=== PATIENT | male | born 1970 | race Caucasian/White ===

== ENCOUNTER → 2018-11-07 | Outpatient (CLI) | payer OTHER ==
--- NOTE | 2018-11-07 22:01 | CT ---
EXAMINATION TYPE: CT abdomen pelvis wo con DATE OF EXAM: 11/07/2018 HISTORY: Right sided abdominal and flank pain CT DLP: 273.8 mGycm. Automated Exposure Control for Dose Reduction was Utilized. TECHNIQUE: CT scan of the abdomen and pelvis is performed without oral or IV contrast. COMPARISON: NONE FINDINGS: Within the limitations of a non-contrast study, the following observations are made. LUNG BASES: No significant abnormality is appreciated. LIVER/GB: Liver is upper limits of normal in size. Liver is markedly heterogeneous hypodense consist ent with diffuse fatty infiltration. Gallbladder has distended margins without surrounding inflammato ry change. PANCREAS: No significant abnormality is seen. SPLEEN: No significant abnormality is seen. ADRENALS: No significant abnormality is seen. KIDNEYS: No renal stones or hydronephrosis is present bilaterally. No intraluminal calculus in poorly distended bladder. BOWEL: Appendix within normal limits for base of cecum in the right pelvis. GENITAL ORGANS: No gross abnormality seen. LYMPH NODES: No greater than 1cm abdominal or pelvic lymph nodes are appreciated. OSSEOUS STRUCTURES: Moderate to severe narrowing with endplate sclerosis L5-S1 level. OTHER: No significant additional abnormality is seen. IMPRESSION: No renal stones or hydronephrosis is seen bilaterally. No suspicious acute finding identi fied on noncontrast CT.
== END | disposition home or self-care (01) ==
LOC: RADCTMAIN 16:05
DX: R10.9 Unspecified abdominal pain (principal)
CPT/HCPCS: 74176

== ENCOUNTER 2019-03-19 00:50 | Emergency (ER) | payer OTHER ==
--- NOTE | 2019-03-19 01:50 | ED ---
Extremity Problem HPI - General Chief complaint: Extremity Problem,Nontraumatic Stated complaint: Rt Arm Pain Time Seen by Provider: 03/19/19 01:06 Source: patient Mode of arrival: ambulatory Limitations: no limitations - History of Present Illness Initial comments: This patient is a 48-year-old man who presents to be evaluated for swelling and redness to the right forearm. The patient believe that he had a spider bite to the mid forearm. He developed some redness and swelling over the course of next day. He circled the area and then when it had not completely resolved he felt he should be seen here for evaluation. The patient does note that the redness has started to decrease, but he does continue to have some swelling and tenderness. After reading on the Internet he was concerned there may be a blood clot. He does not have any associated symptoms. No chest pain, dyspnea, cough or hemoptysis, palpitations. No fever or chills. No history of DVT or PE. MD Complaint: extremity swelling Onset/Timin -: days(s) Location: right, upper extremity History of Same: No Quality: dull Consistency: constant Improves with: nothing Worsens with: nothing - Related Data Previous Rx's Medication Instructions Recorded Sulfamethox-Tmp 800-160Mg [Bactrim 1 each PO Q12HR #14 tab 03/19/19 Ds] Allergies Allergy/AdvReac Type Severity Reaction Status Date / Time No Known Allergies Allergy Verified 03/19/19 01:04 Review of Systems ROS Statement: Those systems with pertinent positive or pertinent negative responses have been documented in the HPI. ROS Other: All systems not noted in ROS Statement are negative. Constitutional: Denies: fever, chills Respiratory: Denies: cough, dyspnea Cardiovascular: Denies: chest pain, palpitations Skin: Reports: as per HPI, other (Bite with surrounding erythema and swelling) Neurological: Denies: weakness, numbness Past Medical History Additional Past Medical History / Comment(s): TBI, Hx of back Fracture History of Any Multi-Drug Resistant Organisms: None Reported Past Surgical History: Orthopedic Surgery Additional Past Surgical History / Comment(s): wrist, brain ( fall from 26 ft ladder 2010) Past Psychological History: Depression Smoking Status: Current every day smoker Past Alcohol Use History: Daily Past Drug Use History: None Reported General Exam Limitations: no limitations General appearance: alert, in no apparent distress Respiratory exam: Present: normal lung sounds bilaterally. Absent: respiratory distress, wheezes, rales, rhonchi, stridor Cardiovascular Exam: Present: regular rate, normal rhythm, normal heart sounds. Absent: systolic murmur, diastolic murmur, rubs, gallop Right Shoulder Exam: Present: normal inspection Upper Arm exam: Present: normal inspection Elbow exam: Present: normal inspection, full ROM. Absent: tenderness, swelling Forearm Wrist exam: Present: full ROM, swelling, erythema. Absent: abrasion, laceration, ecchymosis, deformity, crepitus, dislocation, tenderness over anatomical snuff box, pain with axial thumb loading Hand Wrist exam: Present: full ROM. Absent: tenderness, swelling Course Vital Signs 03/19/19 00:58 Temperature 98.3 F Pulse Rate 92 Respiratory 18 Rate Blood Pressure 125/94 O2 Sat by Pulse 97 Oximetry Medical Decision Making - Lab Data Result diagrams: 03/19/19 02:05 Lab Results 03/19/19 03/19/19 Range/Units 02:05 02:05 WBC 7.8 (3.8-10.6) k/uL RBC 4.64 (4.30-5.90) m/uL Hgb 15.8 (13.0-17.5) gm/dL Hct 44.7 (39.0-53.0) % MCV 96.3 (80.0-100.0) fL MCH 34.0 (25.0-35.0) pg MCHC 35.3 (31.0-37.0) g/dL RDW 13.2 (11.5-15.5) % Plt Count 279 (150-450) k/uL Neutrophils % 47 % Lymphocytes % 40 % Monocytes % 7 % Eosinophils % 3 % Basophils % 1 % Neutrophils # 3.6 (1.3-7.7) k/uL Lymphocytes # 3.1 (1.0-4.8) k/uL Monocytes # 0.5 (0-1.0) k/uL Eosinophils # 0.2 (0-0.7) k/uL Basophils # 0.1 (0-0.2) k/uL D-Dimer 0.33 (<0.60) mg/L FEU Disposition Clinical Impression: Infected bite wound Disposition: HOME SELF-CARE Condition: Good Instructions (If sedation given, give patient instructions): Insect Bite or Sting (ED) Prescriptions: Sulfamethox-Tmp 800-160Mg [Bactrim Ds] 1 each PO Q12HR #14 tab Is patient prescribed a controlled substance at d/c from ED?: No Referrals: [facility],Clinic [Primary Care Provider] - 1-2 days
[2019-03-19 02:23] LABS: Basophils # (A) 0.1 k/uL (0-0.2); Basophils % (A) 1 %; Eosinophils # (A) 0.2 k/uL (0-0.7); Eosinophils % (A) 3 %; HCT 44.7 % (39.0-53.0); HGB 15.8 gm/dL (13.0-17.5); Lymphocytes # (A) 3.1 k/uL (1.0-4.8); Lymphocytes % (A) 40 %; MCHC 35.3 g/dL (31.0-37.0); MCV 96.3 fL (80.0-100.0); Mean Platelet Volume 5.9; Monocytes # (A) 0.5 k/uL (0-1.0); Monocytes % (A) 7 %; Neutrophils # (A) 3.6 k/uL (1.3-7.7); Neutrophils % (A) 47 %; Platelet Count 279 k/uL (150-450); RBC 4.64 m/uL (4.30-5.90); RDW 13.2 % (11.5-15.5); WBC 7.8 k/uL (3.8-10.6)
[2019-03-19] MEDS ORDERED: SULFAMETHOX-TMP 800-160MG 1 EACH TAB PO STA (02:44)
[2019-03-19] MEDS ORDERED: SULFAMETH-TMP DS STARTER PACK 2 TAB BTL PO STA (03:38)
[2019-03-19 03:44] VITALS: BP 126/99; PULSE 112; RESP 19; TEMP 98.8
== END 2019-03-19 03:44 | disposition home or self-care (01) ==
LOC: EC 00:50
DX: S50.861A Insect bite (nonvenomous) of right forearm, initial encounter (principal); L08.9 Local infection of the skin and subcutaneous tissue, unspecified; F17.200 Nicotine dependence, unspecified, uncomplicated; W57.XXXA Bitten or stung by nonvenomous insect and other nonvenomous arthropods, initial encounter
CPT/HCPCS: 36415; 85025; 85379; 99283

== ENCOUNTER 2019-12-06 21:53 | Emergency (ER) | payer OTHER ==
--- NOTE | 2019-12-06 22:31 | ED ---
Recheck HPI - General Chief Complaint: Recheck/Abnormal Lab/Rx Stated Complaint: Abnormal Labs Time Seen by Provider: 12/06/19 22:04 Source: patient Mode of arrival: ambulatory Limitations: no limitations - History of Present Illness Initial Comments: This patient is a 49-year-old man who presents to have evaluation for hypokalemia. The patient states that earlier today he went to the [facility] in [place] where they did routine laboratory work. He states that approximately an hour or so ago he received a phone call telling him he needed to go to the nearest emergency department because his potassium was 2.9. Patient is not having any symptoms related to this. He denies chest pain, dyspnea, palpitations, lightheadedness or syncope. The patient does note that his oral intake has been down a little bit he states his appetite has not been great and also his new dentures and he has not felt like eating much. MD Complaint: abnormal lab -: hour(s) Returns Today for: Called Because of Abnormal Lab/Test Symptoms Since Prior Visit: no new symptoms Context: called for abnormal lab result Associated Symptoms: none - Related Data Home Medications Medication Instructions Recorded Confirmed Acetaminophen Tab [Tylenol Tab] 500 mg PO Q6H PRN 12/06/19 12/06/19 Lidocaine [Lidoderm 5% Patch] 1 patch TRANSDERM DAILY 12/06/19 12/06/19 Methocarbamol [Robaxin-750] 750 mg PO QID PRN 12/06/19 12/06/19 diphenhydrAMINE HCL [Benadryl] 50 mg PO Q6H 12/06/19 12/06/19 Previous Rx's Medication Instructions Recorded Potassium Chloride ER [K-Dur 20] 20 meq PO TID #9 tab 12/07/19 Allergies Allergy/AdvReac Type Severity Reaction Status Date / Time No Known Allergies Allergy Verified 12/06/19 23:24 Review of Systems ROS Statement: Those systems with pertinent positive or pertinent negative responses have been documented in the HPI. ROS Other: All systems not noted in ROS Statement are negative. Constitutional: Denies: fever Respiratory: Denies: cough, dyspnea Cardiovascular: Denies: chest pain, palpitations, edema, syncope Gastrointestinal: Denies: abdominal pain, vomiting, diarrhea Genitourinary: Denies: dysuria Musculoskeletal: Denies: back pain Skin: Denies: rash Neurological: Denies: headache, weakness, numbness, paresthesias Past Medical History Additional Past Medical History / Comment(s): TBI, Hx of back Fracture History of Any Multi-Drug Resistant Organisms: None Reported Past Surgical History: Orthopedic Surgery Additional Past Surgical History / Comment(s): wrist, brain ( fall from 26 ft ladder 2010) Past Psychological History: Depression Smoking Status: Current every day smoker Past Alcohol Use History: Daily Past Drug Use History: Marijuana General Exam Limitations: no limitations General appearance: alert, in no apparent distress Head exam: Present: atraumatic, normocephalic Eye exam: Present: normal appearance. Absent: scleral icterus, conjunctival injection ENT exam: Present: normal oropharynx Neck exam: Present: normal inspection Respiratory exam: Present: normal lung sounds bilaterally. Absent: respiratory distress, wheezes, rales, rhonchi, stridor Cardiovascular Exam: Present: regular rate, normal rhythm, normal heart sounds. Absent: systolic murmur, diastolic murmur, rubs, gallop GI/Abdominal exam: Present: soft. Absent: distended, tenderness, guarding, rebound, rigid, mass Extremities exam: Present: normal inspection, normal capillary refill. Absent: pedal edema, calf tenderness Neurological exam: Present: alert Skin exam: Present: warm, dry, intact, normal color. Absent: rash Course Vital Signs 12/06/19 12/06/19 12/06/19 21:54 22:18 23:30 Temperature 98.1 F Pulse Rate 92 90 Pulse Rate [ 89 Pulse Oximetery ] Respiratory 20 18 Rate Blood Pressure 153/110 146/112 O2 Sat by Pulse 100 99 Oximetry 12/07/19 12/07/19 01:00 02:30 Temperature 97.7 F Pulse Rate 89 92 Pulse Rate [ Pulse Oximetery ] Respiratory 17 18 Rate Blood Pressure 148/110 149/108 O2 Sat by Pulse 98 100 Oximetry Medical Decision Making - Medical Decision Making Patient is a 49-year-old man sent for evaluation treatment of hypokalemia. His potassium is found to be low. Patient is given supplementation here and I discussed admitting him for further supplementation, but the patient states she is asymptomatic and wants to go. We discussed close follow-up to have his potassium rechecked. We discussed returning immediately should he develop any symptoms. - Lab Data Result diagrams: 12/06/19 22:13 12/06/19 22:13 Lab Results 12/06/19 12/06/19 Range/Units 22:13 22:13 WBC 8.6 (3.8-10.6) k/uL RBC 3.90 L (4.30-5.90) m/uL Hgb 14.4 (13.0-17.5) gm/dL Hct 42.4 (39.0-53.0) % MCV 108.9 H (80.0-100.0) fL MCH 37.0 H (25.0-35.0) pg MCHC 34.0 (31.0-37.0) g/dL RDW 14.3 (11.5-15.5) % Plt Count 232 (150-450) k/uL Neutrophils % 58 % Lymphocytes % 28 % Monocytes % 8 % Eosinophils % 3 % Basophils % 2 % Neutrophils # 5.0 (1.3-7.7) k/uL Lymphocytes # 2.4 (1.0-4.8) k/uL Monocytes # 0.6 (0-1.0) k/uL Eosinophils # 0.2 (0-0.7) k/uL Basophils # 0.2 (0-0.2) k/uL Manual Slide Review Performed Macrocytosis Marked A Stomatocytes Present Sodium 136 L (137-145) mmol/L Potassium 2.3 L* (3.5-5.1) mmol/L Chloride 98 (98-107) mmol/L Carbon Dioxide 28 (22-30) mmol/L Anion Gap 10 mmol/L BUN 6 L (9-20) mg/dL Creatinine 0.49 L (0.66-1.25) mg/dL Est GFR (CKD-EPI)AfAm >90 (>60 ml/min/1.73 sqM) Est GFR (CKD-EPI)NonAf >90 (>60 ml/min/1.73 sqM) Glucose 82 (74-99) mg/dL Calcium 9.0 (8.4-10.2) mg/dL - EKG Data EKG shows normal: sinus rhythm (With one PVC), axis (normal), intervals (norm al), QRS complexes (normal), ST-T waves (normal) Rate: normal (Rate 93 bpm) Disposition Clinical Impression: Hypokalemia Disposition: HOME SELF-CARE Condition: Fair Instructions (If sedation given, give patient instructions): Hypokalemia (ED) Prescriptions: Potassium Chloride ER [K-Dur 20] 20 meq PO TID #9 tab Is patient prescribed a controlled substance at d/c from ED?: No Referrals: [facility],Clinic [Primary Care Provider] - 1-2 days
[2019-12-06 22:34] LABS: Basophils # (A) 0.2 k/uL (0-0.2); Basophils % (A) 2 %; Eosinophils # (A) 0.2 k/uL (0-0.7); Eosinophils % (A) 3 %; HCT 42.4 % (39.0-53.0); HGB 14.4 gm/dL (13.0-17.5); Lymphocytes # (A) 2.4 k/uL (1.0-4.8); Lymphocytes % (A) 28 %; MCV 108.9 fL (80.0-100.0); Macrocytosis Marked; Mean Platelet Volume 6.7; Monocytes # (A) 0.6 k/uL (0-1.0); Monocytes % (A) 8 %; Neutrophils % (A) 58 %; Platelet Count 232 k/uL (150-450); RDW 14.3 % (11.5-15.5); WBC 8.6 k/uL (3.8-10.6)
[2019-12-06 22:46] LABS: African American GFR (CKD) >90 (>60 ml/min/1.73 sqM); Anion Gap 10 mmol/L; Blood Urea Nitrogen 6 mg/dL (9-20); Carbon Dioxide 28 mmol/L (22-30); Chloride 98 mmol/L (98-107); Glucose 82 mg/dL (74-99); Non-African American GFR(CKD) >90 (>60 ml/min/1.73 sqM); Sodium 136 mmol/L (137-145)
[2019-12-06 22:54] LABS: Stomatocytes Present
[2019-12-06 23:49] LABS: Potassium 2.3 mmol/L (3.5-5.1)
[2019-12-07] MEDS ORDERED: POTASSIUM BICARBONATE/CIT AC 20 MEQ TABLET.EFF PO ONE (00:04)
[2019-12-07] MEDS ORDERED: POTASSIUM CHLORIDE 10 MEQ in WATER FOR INJECTION 1 100ML.BAG IVPB STA (00:04)
[2019-12-07 02:31] VITALS: BP 149/108; PULSE 92; RESP 18; TEMP 97.7
== END 2019-12-07 02:31 | disposition home or self-care (01) ==
LOC: EC 21:53
DX: E87.6 Hypokalemia (principal); F17.200 Nicotine dependence, unspecified, uncomplicated; Z79.899 Other long term (current) drug therapy
CPT/HCPCS: 36415; 93005; 80048; 85025; 99282; 96365; J3480

== ENCOUNTER 2019-12-16 18:04 | Emergency (ER) | payer OTHER ==
[2019-12-16 18:10] VITALS: RESP 16
[2019-12-16] MEDS ORDERED: SODIUM CHLORIDE 0.9% 500 ML 500 ML IV STA (18:13)
[2019-12-16] MEDS ORDERED: THIAMINE 100 MG/ML 2 ML VIAL IM STA (18:17)
[2019-12-16] MEDS ORDERED: LORazepam 2 MG/ML INJ IV PRN ×3 (18:17)
[2019-12-16 18:31] LABS: Basophils # (A) 0.1 k/uL (0-0.2); Basophils % (A) 1 %; Eosinophils # (A) 0.2 k/uL (0-0.7); Eosinophils % (A) 2 %; HCT 39.7 % (39.0-53.0); HGB 13.5 gm/dL (13.0-17.5); Lymphocytes # (A) 1.1 k/uL (1.0-4.8); Lymphocytes % (A) 13 %; MCH 37.2 pg (25.0-35.0); MCHC 34.1 g/dL (31.0-37.0); MCV 109.3 fL (80.0-100.0); Macrocytosis Marked; Mean Platelet Volume 7.2; Monocytes # (A) 0.6 k/uL (0-1.0); Monocytes % (A) 7 %; Neutrophils # (A) 6.5 k/uL (1.3-7.7); Neutrophils % (A) 75 %; Platelet Count 207 k/uL (150-450); RBC 3.63 m/uL (4.30-5.90); RDW 14.2 % (11.5-15.5); WBC 8.6 k/uL (3.8-10.6)
[2019-12-16 18:42] LABS: ALT 14 U/L (4-49); AST 51 U/L (17-59); Acetaminophen <10.0 ug/mL; African American GFR (CKD) >90 (>60 ml/min/1.73 sqM); Albumin 3.9 g/dL (3.5-5.0); Alcohol <10 mg/dL; Alkaline Phosphatase 102 U/L (38-126); Anion Gap 10 mmol/L; Blood Urea Nitrogen 7 mg/dL (9-20); Calcium 9.3 mg/dL (8.4-10.2); Carbon Dioxide 27 mmol/L (22-30); Chloride 97 mmol/L (98-107); Glucose 94 mg/dL (74-99); Magnesium 1.2 mg/dL (1.6-2.3); Non-African American GFR(CKD) >90 (>60 ml/min/1.73 sqM); Potassium 3.2 mmol/L (3.5-5.1); Salicylate <1.0 mg/dL; Sodium 134 mmol/L (137-145); Total Bilirubin 1.7 mg/dL (0.2-1.3); Total Protein 6.5 g/dL (6.3-8.2)
[2019-12-16] MEDS ORDERED: LORazepam 2 MG/ML INJ IV STA (18:59)
[2019-12-16] MEDS ORDERED: POTASSIUM CHLORIDE ER 10 MEQ TAB.ER.PRT PO STA (19:00)
[2019-12-16] MEDS ORDERED: levETIRAcetam IV 1,000 MG in SALINE 1 100ML.BAG IVPB STA (19:19)
--- NOTE | 2019-12-16 19:21 | CT ---
EXAMINATION TYPE: CT brain wo con DATE OF EXAM: 12/16/2019 COMPARISON: None INDICATION: Seizure. DLP: 1188.4 mGycm, Automated exposure control for dose reduction was used. CONTRAST: None CT of the brain is performed utilizing 3 mm thick sections through the posterior fossa and 3 mm thick sections through the remaining calvarium. Study is performed within 24 hours of arrival to the hosp ital. There is a curvilinear area of increased density along the right frontal parietal region could be a s mall subdural hematoma. Correlate with history. This has a depth of 0.7 cm. Minimal mass effect on t he adjacent brain may be present. No midline shift is evident. No mass lesion is evident. There is hypodensity within the left basal ganglion. Lacunar infarction be considered. This could be confirmed with MRI. Some mild white matter changes may be within the basal ganglion. Ventricles and sulci are appropriate for the patient age. Paranasal sinuses and mastoid air cells within the [id number] are clear. IMPRESSIONS: 1. Small subdural hematoma with a depth of 0.7 cm right frontal parietal region with minimal mass e ffect on the adjacent brain. 2. Hypodensity within the left basal ganglion may be an acute to subacute lacunar infarct. Some chron ic white matter changes may be within the bilateral basal ganglion. 3. Consider additional workup with MRI with contrast. 4. Report was called to emergency room [facility] by Dr. Ashraf by telephone at time of interpretatio n 1916 hours 12/16/2019
--- NOTE | 2019-12-16 19:26 | ED ---
Seizure HPI - General Chief Complaint: Seizure Stated Complaint: Seizure Time Seen by Provider: 12/16/19 18:13 Source: EMS Mode of arrival: EMS Limitations: no limitations - History of Present Illness Initial Comments: 49-year-old male who is a daily drinker presents to the emergency department today for chief complaint seizure. Patient has a witnessed seizure entire body shaking by a friend. They stated approximately lasted for minutes. Patient sta tess he's never had seizure before he states he is a daily drinker and hasn't drank since the night prior he states he did fall he states when he had the seizure he states he does not have a headache nausea vomiting visual changes he states that he has been somewhat shaky. Patient states that he has never had seizure from withdrawal before. Patient states he doesn't like he struck his head when he fell out of the car, denies neck pain. Denies fevers. Denies facial weakness, extremity weakness, sensation deficits. Patient on arrival is AAOx4 does not appear acute altered. Answering questions appropriate on gross exam no evidence of obvious head trauma. BP elevated on arrival as well as HR. - Related Data Home Medications Medication Instructions Recorded Confirmed Acetaminophen Tab [Tylenol Tab] 500 mg PO Q6H PRN 12/06/19 12/06/19 Lidocaine [Lidoderm 5% Patch] 1 patch TRANSDERM DAILY 12/06/19 12/06/19 Methocarbamol [Robaxin-750] 750 mg PO QID PRN 12/06/19 12/06/19 diphenhydrAMINE HCL [Benadryl] 50 mg PO Q6H 12/06/19 12/06/19 Previous Rx's Medication Instructions Recorded Potassium Chloride ER [K-Dur 20] 20 meq PO TID #9 tab 12/07/19 Allergies Allergy/AdvReac Type Severity Reaction Status Date / Time No Known Allergies Allergy Verified 12/06/19 23:24 Review of Systems ROS Statement: Those systems with pertinent positive or pertinent negative responses have been documented in the HPI. ROS Other: All systems not noted in ROS Statement are negative. Past Medical History Additional Past Medical History / Comment(s): TBI, Hx of back Fracture History of Any Multi-Drug Resistant Organisms: None Reported Past Surgical History: Orthopedic Surgery Additional Past Surgical History / Comment(s): wrist, brain ( fall from 26 ft ladder 2010) Past Psychological History: Depression Smoking Status: Current every day smoker Past Alcohol Use History: Daily Past Drug Use History: Marijuana General Exam - General Exam Comments Initial Comments: General: The patient is awake and alert, in no distress Eye: +3 mm pupils are equal, round and reactive to light, extra-ocular movements are intact. No nystagmus. There is normal conjunctiva bilaterally. No signs of icterus. Ears, nose, mouth and throat: There are moist mucous membranes and no oral lesions. Neck: The neck is supple, there is no tenderness or JVD. Cardiovascular: There is a regular rate and rhythm. No murmur, rub or gallop is appreciated. Respiratory: Lungs are clear to auscultation, respirations are non-labored, breath sounds are equal. No wheezes, stridor, rales, or rhonchi. Gastrointestinal: Soft, non-distended, non-tender abdomen without masses or organomegaly noted. There is no rebound or guarding present. Musculoskeletal: Normal ROM, no tenderness. Strength 5/5. Sensation intact. Pulses equal bilaterally 2+. Neurological: A&O x 3. CN II-XII intact, memory intact to immediately, intermediate and halfway recall. Able to follow simple verbal. Able to name a common object (pen). High quality, labial (pa) and lingual (la) speech. Low quality posterior pharynx/larynx (ga) voice sounds. Able to express general knowledge (days in a week). No hemineglect or inattention noted. Finger agnosia (-) and spatially oriented. Light touch and temperature sensation present over the face, chest, abdomen, back, UE bilaterally, and LE bilaterally. Able to localize point during point localization b/l and extinction. No visible bulk atrophy, hypertrophy, fasciculations, or myoclonus of the UE or LE b/l. Full PROM in UE and LE b/l. Bilateral muscle strength 5/5 for the following muscles: deltoid, biceps, triceps, brachioradialis, wrist extensors/flexor, hip flexor, hip abductors/adductors, hamstrings, quadriceps, feet dorsiflexors/plantar flexors. Finger to nose, finger to the examiners finger slightly shaky b/l but does not appear grossly ataxic b/l, and heel to garcia coordinated and accurate b/l. Coordinated and even demonstration of hand flip, finger to thumb, and toe tap b/l. (-) pronator drift. No nuchal rigidity. Skin: Skin is warm and dry and no rashes or lesions are noted. Psychiatric: Cooperative, appropriate mood & affect, normal judgment. Limitations: no limitations Course Vital Signs 12/16/19 12/16/19 18:07 20:00 Temperature 98.1 F 98.2 F Pulse Rate 108 H 102 H Respiratory 16 16 Rate Blood Pressure 134/113 136/104 O2 Sat by Pulse 100 98 Oximetry - Reevaluation(s) Reevaluation #1: Spoke to Dr Tanner who states he is comfortable with transfer to [facility] ED for neurosurgical evaluation/ICU stay most likely. Discussed current care plan he is agreeable and no changes at this time. 12/16/19 19:38 Medical Decision Making - Medical Decision Making 49-year-old male who is a daily drinker presenting for new-onset seizure. CT revealed a frontal left parietal subdural small with no shift. Possible subacute lacunar infarct is appreciated as well. Discussed VS, CT findings with attending who was next to me when I received the radiology call from Dr. Ashraf. Patient was mad aware of the findings and will be transferred to outside facility for high level of care. Patient neurological status has not changed. He was given keppra. Patient was given ativan. Patient is agreeable to transfer and care plan. Patient does have some electrolyte derangements such as low magnesium at 1.2 and low potassiumat 3.2. - Lab Data Result diagrams: 12/16/19 18:19 12/16/19 18:19 Lab Results 12/16/19 12/16/19 12/16/19 Range/Units 18:19 18:19 19:40 WBC 8.6 (3.8-10.6) k/uL RBC 3.63 L (4.30-5.90) m/uL Hgb 13.5 (13.0-17.5) gm/dL Hct 39.7 (39.0-53.0) % MCV 109.3 H (80.0-100.0) fL MCH 37.2 H (25.0-35.0) pg MCHC 34.1 (31.0-37.0) g/dL RDW 14.2 (11.5-15.5) % Plt Count 207 (150-450) k/uL Neutrophils % 75 % Lymphocytes % 13 % Monocytes % 7 % Eosinophils % 2 % Basophils % 1 % Neutrophils # 6.5 (1.3-7.7) k/uL Lymphocytes # 1.1 (1.0-4.8) k/uL Monocytes # 0.6 (0-1.0) k/uL Eosinophils # 0.2 (0-0.7) k/uL Basophils # 0.1 (0-0.2) k/uL Manual Slide Review Performed Macrocytosis Marked A PT 10.7 (9.0-12.0) sec INR 1.0 (<1.2) APTT 22.8 (22.0-30.0) sec Sodium 134 L (137-145) mmol/L Potassium 3.2 L (3.5-5.1) mmol/L Chloride 97 L (98-107) mmol/L Carbon Dioxide 27 (22-30) mmol/L Anion Gap 10 mmol/L BUN 7 L (9-20) mg/dL Creatinine 0.62 L (0.66-1.25) mg/dL Est GFR (CKD-EPI)AfAm >90 (>60 ml/min/1.73 sqM) Est GFR (CKD-EPI)NonAf >90 (>60 ml/min/1.73 sqM) Glucose 94 (74-99) mg/dL Calcium 9.3 (8.4-10.2) mg/dL Magnesium 1.2 L (1.6-2.3) mg/dL Total Bilirubin 1.7 H (0.2-1.3) mg/dL AST 51 (17-59) U/L ALT 14 (4-49) U/L Alkaline Phosphatase 102 (38-126) U/L Total Protein 6.5 (6.3-8.2) g/dL Albumin 3.9 (3.5-5.0) g/dL Salicylates <1.0 mg/dL Acetaminophen <10.0 ug/mL Serum Alcohol <10 mg/dL Disposition Clinical Impression: Subdural hematoma, New onset seizure, Alcohol abuse, Hypomagnesemia, Hypokalemia, QT prolongation, Lacunar infarction Disposition: TRANSFER TO PSYCH HOSP/UNIT Condition: Serious Is patient prescribed a controlled substance at d/c from ED?: No Referrals: [facility],Clinic [Primary Care Provider] - 1-2 days Time of Disposition: 19:28 - Out of Hospital Transfer - Req. Specs Out of Hospital Transfer - Requested Specifics: Other Emergency Center ([facility]: Spoke with [facility] physician Dr. Sesay)
[2019-12-16] MEDS: MAGNESIUM SULFATE-D5W PMX 1 GM in DEXTROSE/WATER 1 100ML.BAG IVPB SCH ×2 (19:56→20:17)
[2019-12-16 20:04] LABS: Partial Thromboplastin Time 22.8 sec (22.0-30.0); Prothrombin Time 10.7 sec (9.0-12.0)
[2019-12-16 20:09] VITALS: BP 136/104; PULSE 102; TEMP 98.2
[2019-12-17] MEDS ORDERED: THIAMINE 100 MG TAB PO SCH (07:30)
== END 2019-12-16 20:00 ==
LOC: EC 18:04
DX: S06.5X9A Traumatic subdural hemorrhage with loss of consciousness of unspecified duration, initial encounter (principal); R56.9 Unspecified convulsions; E83.42 Hypomagnesemia; E87.6 Hypokalemia; R94.31 Abnormal electrocardiogram [ECG] [EKG]; F10.10 Alcohol abuse, uncomplicated; Y90.9 Presence of alcohol in blood, level not specified; F17.200 Nicotine dependence, unspecified, uncomplicated; Z79.899 Other long term (current) drug therapy
CPT/HCPCS: 36415; 93005; 80053; 83735; 85025; 85610; 85730; 83520; 80329; 80320; 70450; 99285; 96374; 96375; 96361; 96372; J2060; J3411; J3475; J1953

== ENCOUNTER → 2020-02-23 | Outpatient (CLI) | payer OTHER ==
--- NOTE | 2020-02-24 04:34 | MR ---
EXAMINATION TYPE: MR brain wo/w con DATE OF EXAM: 02/23/2020 COMPARISON: HISTORY: Seizure CONTRAST: Standard multiplanar, multisequence MRI departmental protocol utilizing 7 mL intravenous Gadavist gabriella olinium contrast. Ventricles have normal size. There is no mass effect nor midline shift. There is no evidence of intra cranial hemorrhage. On the T2 and FLAIR images there are scattered white matter high signal foci arou nd the lateral ventricles. This is more on the left side in the centrum semiovale. These areas measur e up to 1.5 cm. Total number is approximately 10. Diffusion images show that some of these foci have increased signal. The brainstem shows a single 4 mm focus of increased signal on the left side of the isela. Cerebellum is intact. Corpus callosum is intact. Sella turcica appears normal. The contrast im ages show no pathologic enhancement. There is normal enhancement of the venous sinuses. IMPRESSION: White matter multiple foci in both cerebral hemispheres and also left side of the isela are nonspecifi c. This could relate to chronic small vessel ischemia or demyelinating disease. No evidence of a cathy ical infarct. The diffusion images show 2 or 3 foci of increased signal involving these white matter lesions that c ould be acute infarcts or acute foci of demyelinization.
== END | disposition home or self-care (01) ==
LOC: RADMRIMAIN 19:59
DX: R90.89 Other abnormal findings on diagnostic imaging of central nervous system (principal); G40.89 Other seizures
CPT/HCPCS: 70553; A9585

== ENCOUNTER 2020-12-13 21:52 | Emergency (ER) | payer OTHER ==
[2020-12-13 22:00] VITALS: BP 120/87; PULSE 91; RESP 18; TEMP 98.1
--- NOTE | 2020-12-13 22:47 | ED ---
Psych HPI - General Chief Complaint: Psychiatric Symptoms Stated Complaint: Sent by [facility] Time Seen by Provider: 12/13/20 22:02 Source: patient Mode of arrival: ambulatory - History of Present Illness Initial Comments: This patient is 50-year-old man who reports that he was sent here by the he'll be a because he was not taking all of his psychiatric medications. The patient states that he feels like they knock him out when he takes a medicines. When I review the patient, he denies feeling suicidal or severely depressed. He does complain of anxiety. Complaint: other -: days(s) Associated Psychiatric Symptoms: racing thoughts Quality: getting worse Improves With: none Worsens With: none Context: not taking psychiatric medications Associated Symptoms: denies other symptoms - Related Data Home Medications Medication Instructions Recorded Confirmed Acetaminophen Tab [Tylenol Tab] 500 mg PO Q6H PRN 12/06/19 12/06/19 Lidocaine [Lidoderm 5% Patch] 1 patch TRANSDERM DAILY 12/06/19 12/06/19 Methocarbamol [Robaxin-750] 750 mg PO QID PRN 12/06/19 12/06/19 diphenhydrAMINE HCL [Benadryl] 50 mg PO Q6H 12/06/19 12/06/19 Previous Rx's Medication Instructions Recorded Potassium Chloride ER [K-Dur 20] 20 meq PO TID #9 tab 12/07/19 Allergies Allergy/AdvReac Type Severity Reaction Status Date / Time No Known Allergies Allergy Verified 12/13/20 22:00 Review of Systems ROS Statement: Those systems with pertinent positive or pertinent negative responses have been documented in the HPI. ROS Other: All systems not noted in ROS Statement are negative. Constitutional: Denies: fever, chills Respiratory: Denies: cough Cardiovascular: Denies: chest pain Gastrointestinal: Denies: abdominal pain, vomiting Neurological: Denies: headache, weakness Past Medical History Additional Past Medical History / Comment(s): TBI, Hx of back Fracture History of Any Multi-Drug Resistant Organisms: None Reported Past Surgical History: Orthopedic Surgery Additional Past Surgical History / Comment(s): wrist, brain ( fall from 26 ft ladder 2010) Past Psychological History: Depression Smoking Status: Current every day smoker Past Alcohol Use History: Daily Past Drug Use History: Marijuana General Exam Limitations: no limitations General appearance: alert, in no apparent distress Head exam: Present: atraumatic, normocephalic Eye exam: Present: normal appearance Neck exam: Present: normal inspection Respiratory exam: Present: normal lung sounds bilaterally. Absent: respiratory distress, wheezes, rales, rhonchi, stridor Cardiovascular Exam: Present: regular rate, normal rhythm, normal heart sounds. Absent: systolic murmur, diastolic murmur, rubs, gallop GI/Abdominal exam: Present: soft. Absent: distended, tenderness, guarding, rebound, rigid, mass Extremities exam: Present: normal inspection, normal capillary refill Back exam: Present: normal inspection Neurological exam: Present: alert, oriented X3, normal gait, motor sensory deficit Psychiatric exam: Present: anxious, other (Patient does appear to be anxious and having some pressured speech.). Absent: depressed, agitated, flat affect, homicidal ideation, suicidal ideation Skin exam: Present: warm, dry, intact, normal color. Absent: rash Course Vital Signs 12/13/20 21:58 Temperature 98.1 F Pulse Rate 91 Respiratory 18 Rate Blood Pressure 120/87 O2 Sat by Pulse 99 Oximetry Medical Decision Making - Medical Decision Making I was reported to me that the patient decided to leave while he was waiting to be seen by the EPS regarding medications. The patient not actively suicidal, reportedly signed out while I was seeing another patient. Disposition Clinical Impression: Acute anxiety Disposition: Left Against Medical Advice Condition: Undetermined Is patient prescribed a controlled substance at d/c from ED?: No Referrals: [facility],Clinic [Primary Care Provider] - 1-2 days
== END 2020-12-13 22:55 | disposition left against medical advice (07) ==
LOC: EC 21:52
DX: F41.9 Anxiety disorder, unspecified (principal); F32.9 Major depressive disorder, single episode, unspecified; F17.200 Nicotine dependence, unspecified, uncomplicated; F12.90 Cannabis use, unspecified, uncomplicated; Z79.899 Other long term (current) drug therapy
CPT/HCPCS: 82075; 99283

== ENCOUNTER → 2022-04-23 | Outpatient (CLI) | payer OTHER ==
--- NOTE | 2022-04-23 15:44 | CT ---
EXAMINATION TYPE: CT abdomen pelvis wo/w con CT DLP: 1584 mGycm, Automated exposure control for dose reduction was used. DATE OF EXAM: 04/23/2022 2:58 PM COMPARISON: CT abdomen pelvis most recent from 11/07/2018. CLINICAL INDICATION:Male, 51 years old with history of N39.42 INCONTINENCE W/O SENSORY AWARENESSS; TECHNIQUE: Standard CT of the abdomen and pelvis following the administration of 100 cc of Isovue 3 00 IV contrast material and oral contrast. Coronal and sagittal reformats were performed. FINDINGS: LOWER CHEST: The lungs are clear. Trace pericardial fluid. ABDOMEN LIVER: There is hypoattenuation suggesting capsular retraction of segment 4/8. GALLBLADDER AND BILE DUCTS: Layering increased densities within the lumen consistent with gallstones are present. No biliary ductal dilatation. PANCREAS: Unremarkable. SPLEEN: Several hypodense focus within the posterior peripheral spleen likely representing a benign p rocess such as a cyst or hemangioma. ADRENAL GLANDS: Unremarkable. KIDNEYS AND URETERS: No evidence of hydronephrosis or renal calculus. The kidneys enhance symmetrical ly without suspicious focal lesion.. PELVIS BLADDER: Incompletely distended but grossly unremarkable. REPRODUCTIVE: Unremarkable. ABDOMEN & PELVIS STOMACH AND BOWEL: Stomach and duodenum are unremarkable. The appendix is within normal limits. No ev idence of bowel obstruction. Enteric contrast reaches the splenic flexure. PERITONEUM: No evidence of pneumoperitoneum or free fluid. VASCULATURE: Mild atherosclerotic calcifications are present throughout the abdominal aorta and its b ranches. No evidence of aortic aneurysm. MUSCULOSKELETAL: No acute osseous abnormalities. Mild degenerative disease most pronounced at L5-S1 w ith disc space narrowing, endplate sclerosis, vacuum disc disease, and anterior osteophyte formation. LYMPH NODES: No gross evidence for lymphadenopathy. SOFT TISSUE/ABDOMINAL WALL: Unremarkable IMPRESSION: 1. No acute abdominal/pelvic process. 2. Suggested capsular retraction with hypoattenuation involving segment 4/8 of the liver which may be related to fibrosis however underlying neoplasm is not excluded. Further evaluation with MR abdomen liver mass protocol is recommended. 3. Cholelithiasis.
== END | disposition home or self-care (01) ==
LOC: RADCTMAIN 12:39
PROVIDERS: ATTEND Urology
DX: K80.20 Calculus of gallbladder without cholecystitis without obstruction (principal); N39.42 Incontinence without sensory awareness
CPT/HCPCS: 74178; Q9967

== ENCOUNTER → 2022-10-21 | Outpatient (CLI) | payer OTHER ==
--- NOTE | 2022-10-21 18:37 | MR ---
EXAMINATION TYPE: MR lumbar spine wo con DATE OF EXAM: 10/21/2022 3:06 PM COMPARISON: CT 04/23/2022. CLINICAL INDICATION: Male, 52 years old with history of M54.59; Low back pain into rt side TECHNIQUE: Multi planar, multi sequence imaging was performed utilizing: T1-weighted, T2-weighted, a nd turbo inversion recovery imaging of the lumbar spine. IV Contrast: . None. FINDINGS: Alignment: The lumbar vertebral bodies have preserved heights and alignment. Cord: The conus medullaris and the distal spinal cord appear unremarkable with regards to their signa l intensity and morphology. Bones/Discs: Bone signal is within normal limits. Reactive bony edema noted along the adjoining endpl ates of L3 superiorly and inferior endplate of L2. As well as T11-T12 anteriorly. No abnormal bony ed nany on inversion recovery sequences. Multilevel disc degenerative is noted and most pronounced at the . Intervertebral disc signal is maintained. T12-L1: No evidence of significant spinal canal stenosis or neural foraminal stenosis. L1-L2: No evidence of significant spinal canal stenosis or neural foraminal stenosis. L2-L3: No evidence of significant spinal canal stenosis or neural foraminal stenosis. L3-L4: No evidence of significant spinal canal stenosis or neural foraminal stenosis. L4-L5: Disc bulge and facet joint arthropathy result in mild spinal canal and mild bilateral neural f oraminal stenosis. L5-S1: The disc is rounded posterior morphology without significant spinal canal stenosis. Facet join t arthropathy with mild neural foraminal stenosis. No significant spinal canal or neural foraminal stenosis in the remainder of the visualized levels. Other findings: None. IMPRESSION: 1. No definitive evidence of disc herniation or significant spinal canal or neural foraminal stenosi s. 2. Multilevel disc degeneration with associated osteoarthritic changes.
== END | disposition home or self-care (01) ==
LOC: RADMRIMAIN 13:55
DX: M51.36 Other intervertebral disc degeneration, lumbar region (principal); M47.816 Spondylosis without myelopathy or radiculopathy, lumbar region
CPT/HCPCS: 72148

== ENCOUNTER → 2023-10-16 | Outpatient (CLI) | payer OTHER ==
--- NOTE | 2023-10-18 12:09 | MR ---
EXAMINATION TYPE: MR abdomen wo/w con DATE OF EXAM: 10/16/2023 12:21 PM CLINICAL INDICATION:Male, 53 years old with history of R93.2 previous abnormal findings; COMPARISON: CT scan abdomen from 04/23/2022. TECHNIQUE: Multiplanar multi-sequence imaging was performed without contrast. Post contrast imaging was performed. Post IV contrast subtraction images were also submitted for review. IV Contrast: cc 8 cc Gadavist FINDINGS: LOWER CHEST: No gross irregularity. ABDOMEN Liver: Motion limits evaluation. There is demonstration of an area of capsular retraction along the s egment 4A/4B extends down towards the gallbladder fossa. Series 601 image 33 slightly higher signal o n T2-weighted imaging. No evidence for hepatic steatosis or cirrhosis. Gallbladder and Bile ducts: No evidence for ductal dilation, or biliary stricture or evidence of chol edocholithiasis. The gallbladder contains layering gallstones.. Pancreas: No ductal dilation. No evidence for solid mass. Spleen: Normal for size. High T2 signal cyst. Adrenal glands: Unremarkable. Kidneys: No evidence for obstructive uropathy. No suspicious renal masses. Stomach and Bowel: No evidence for bowel wall thickening or evidence for obstruction. Retroperitoneum/Peritoneum: No evidence of pneumoperitoneum or free fluid. Vasculature: No aortic aneurysm. Musculoskeletal: The osseous structures appear intact. Lymph Nodes: No gross evidence for lymphadenopathy. Abdominal wall: Unremarkable. IMPRESSION: 1. Persistent area of capsular retraction in segment 4A/4B and extending down towards gallbladder fo ssa with subtle enhancement on delayed imaging most suggestive of fibrosis given stability since 2022. Correlate with prior history of intervention. No enhancing mass that meets HCC criteria. 2. Cholelithiasis.
== END | disposition home or self-care (01) ==
LOC: RADMRIMAIN 11:03
PROVIDERS: ATTEND Family Medicine
DX: R93.2 Abnormal findings on diagnostic imaging of liver and biliary tract (principal); K80.20 Calculus of gallbladder without cholecystitis without obstruction
CPT/HCPCS: 74183; A9585